=== PATIENT | female | born 1985 | race American Indian/Alaskan Native ===

== ENCOUNTER 2016-09-07 18:24 | Emergency (ER) | payer OTHER ==
--- NOTE | 2016-09-07 22:14 | XRay Report ---
FINAL REPORT PROCEDURE: XR ANKLE 2V RT TECHNIQUE: RIGHT ankle radiographs, AP, lateral, and oblique views. CPT 87856 HISTORY: s/p fall, twist ankle COMPARISON: No prior studies are available for comparison. FINDINGS: Fracture (s) and/or Dislocation(s): There is a nondisplaced fracture involving the distal tibial metaphysis posteriorly as visualized on the lateral view only. Alignment: Normal. Joint space(s): Normal. Soft tissues: Normal. Bone mineralization: Normal. Foreign bodies: None. Calcaneal spurring: None. IMPRESSION: Nondisplaced fracture posterior distal tibial metaphysis.
[2016-09-07] MEDS ORDERED: NORCO 5/325 PO ONE (23:09)
[2016-09-07] MEDS ORDERED: TORADOL IM ONE (23:09)
--- NOTE | 2016-09-07 23:46 | Emergency Department Report ---
HPI - General Chief Complaint: Extremity Injury, Lower Time Seen by Provider: 09/07/16 21:54 - HPI HPI: 31-year-old female presents today complaining of right ankle pain post twisting injury. Patient states that she tripped over a curb at 1630 hrs. today. He denies head injury or loss of consciousness. Describes her pain as 9 out of 10 constant, throbbing pain. Denies numbness, weakness, paresthesias. Denies history of injuries or surgeries to right ankle. Denies trying any medication for pain relief. Denies fever, chills, nausea, vomiting, chest pain, shortness of breath, abdominal pain. ED Past Medical Hx - Past Medical History Previous Medical History?: Yes Hx Hypertension: Yes - Surgical History Past Surgical History?: Yes Additional Surgical History: c-sect X4, tubaligation - Social History Smoking Status: Never Smoker Substance Use Type: None - Medications Home Medications: Home Medications Medication Instructions Recorded Confirmed Last Taken Type HYDROcodone/APAP 5-325 [[place] 1 each PO Q6HR PRN #20 tablet 09/07/16 Unknown Rx 5/325] Ibuprofen [Motrin 800 MG tab] 800 mg PO Q8HR PRN #30 tablet 09/07/16 Unknown Rx ED Review of Systems ROS: Stated complaint: RT ANKLE INJURY Other details as noted in HPI Constitutional: denies: chills, fever, malaise Eyes: denies: eye pain ENT: denies: ear pain, throat pain, congestion Respiratory: denies: cough, shortness of breath, wheezing Cardiovascular: denies: chest pain, palpitations Endocrine: no symptoms reported Gastrointestinal: denies: abdominal pain, nausea, vomiting Musculoskeletal: joint swelling, arthralgia Neurological: denies: headache, weakness, numbness, paresthesias Physical Exam - Physical Exam Vital Signs: Vital Signs 09/07/16 20:21 Temperature 99.1 F Pulse Rate 93 H Respiratory 20 Rate Blood Pressure 149/79 O2 Sat by Pulse 100 Oximetry Physical Exam: GENERAL: The patient is well-developed and well-nourished. Patient is in NAD. HEAD: Normocephalic. Atraumatic. NECK: Full range of motion. No midline or paraspinal tenderness to palpation. CHEST/LUNGS: Clear to auscultation throughout. HEART/CARDIOVASCULAR: Regular rate and rhythm. No murmurs, rubs or gallops. ABDOMEN: Abdomen is soft, nontender. Bowel sounds normoactive. No guarding or rebound tenderness. RIGHT ANKLE: Full range of motion, but painful. Tenderness to palpation over medial, anterior and lateral aspect right ankle. No ecchymosis, deformity noted. Normal sensation. Peripheral pulses intact. Capillary refill less than 2 seconds. NEURO: Alert and oriented x 3. Gait not tested due to pain. ED Course Vital Signs 09/07/16 20:21 Temperature 99.1 F Pulse Rate 93 H Respiratory 20 Rate Blood Pressure 149/79 O2 Sat by Pulse 100 Oximetry ED Medical Decision Making - Lab Data Vital Signs 09/07/16 09/08/16 20:21 01:00 Temperature 99.1 F 99.6 F Pulse Rate 93 H 93 H Respiratory 20 16 Rate Blood Pressure 149/79 Blood Pressure 124/72 [Right] O2 Sat by Pulse 100 99 Oximetry - Radiology Data Radiology results: report reviewed PROCEDURE: XR ANKLE 2V RT TECHNIQUE: RIGHT ankle radiographs, AP, lateral, and oblique views. CPT 98750 HISTORY: s/p fall, twist ankle COMPARISON: No prior studies are available for comparison. FINDINGS: Fracture (s) and/or Dislocation(s): There is a nondisplaced fracture involving the distal tibial metaphysis posteriorly as visualized on the lateral view only. Alignment: Normal. Joint space(s): Normal. Soft tissues: Normal. Bone mineralization: Normal. Foreign bodies: None. Calcaneal spurring: None. IMPRESSION: Nondisplaced fracture posterior distal tibial metaphysis. - Medical Decision Making 31-year-old female presents today with right ankle pain post twisting injury. Her x-ray results reveal a nondisplaced fracture involving the distal tibial metaphysis. A referral for orthopedic has been provided. Patient has been placed in a posterior ankle splint, neurovascularly intact post splint. Patient is in no acute distress at this time. She will be discharged home and is encouraged to follow up with a primary care provider. She will be sent home on [place] and ibuprofen and is encouraged to return to the emergency room for any worsening symptoms. Critical care attestation.: If time is entered above; I have spent that time in minutes in the direct care of this critically ill patient, excluding procedure time. ED Disposition Clinical Impression: Tibial fracture Qualifiers: Encounter type: initial encounter Tibia location: distal Fracture type: closed Fracture morphology: unspecified fracture morphology Laterality: right Qualified Code(s): S82.301A - Unspecified fracture of lower end of right tibia, initial encounter for closed fracture Disposition: DISCHARGED TO HOME OR SELFCARE Is pt being admited?: No Does the pt Need Aspirin: No Condition: Stable Instructions: Ankle Fracture (ED), Leg Fracture (ED) Additional Instructions: Follow-up with primary care provider and orthopedic. Return to the emergency department if symptoms worsen. Prescriptions: HYDROcodone/APAP 5-325 [[place] 5/325] 1 each PO Q6HR PRN #20 tablet PRN Reason: Pain Ibuprofen [Motrin 800 MG tab] 800 mg PO Q8HR PRN #30 tablet PRN Reason: Pain Referrals: PRIMARY CAREMD [Primary Care Provider] - 3-5 Days JAIME GARCIA MD [Staff Physician] - 3-5 Days Forms: Accompanied Note, Work/School Release Form(ED) Time of Disposition: 23:50
[2016-09-08 01:02] VITALS: BP 124/72
== END 2016-09-08 01:00 | disposition home or self-care (01) ==
LOC: ED 18:24
DX: S82.301A Unspecified fracture of lower end of right tibia, initial encounter for closed fracture (principal); I10 Essential (primary) hypertension; X50.1XXA Overexertion from prolonged static or awkward postures, initial encounter; Y93.89 Activity, other specified; Y92.89 Other specified places as the place of occurrence of the external cause; Y99.8 Other external cause status
CPT/HCPCS: 29515; 73600; 96372; 99284; J1885